=== PATIENT | female | born 1985 | race Caucasian/White ===

== ENCOUNTER → 2016-07-12 | Outpatient (CLI) | payer MEDICAID, OTHER | LOC: MW.CHFP 15:14 | PROVIDERS: ATTEND Emergency Medicine | DX: N91.2 Amenorrhea, unspecified (principal); R68.89 Other general symptoms and signs | CPT/HCPCS: 81025; 87804 ==

== ENCOUNTER 2017-02-17 10:28 | Inpatient (IN) | payer OTHER ==
[2017-02-17] MEDS ORDERED: Lanolin 100% Cream 7 GM Tube TOP PRN (12:15)
[2017-02-17] MEDS ORDERED: Benzocaine/Menthol 20%-0.5% Spray 78 GM Cannister TOP PRN (12:15)
[2017-02-17] MEDS ORDERED: Acetaminophen 500 MG Tab PO PRN ×2 (12:15)
[2017-02-17] MEDS ORDERED: Witch Hazel Medicated Pads 40/Jar TOP PRN (12:15)
[2017-02-17] MEDS ORDERED: oxyCODONE 5 MG Tab PO PRN (12:15)
[2017-02-17] MEDS ORDERED: Ibuprofen 400 MG Tab PO PRN (12:15)
[2017-02-17] MEDS ORDERED: Ibuprofen 800 MG Tab PO PRN (12:15)
[2017-02-17] MEDS ORDERED: Ibuprofen 800 MG Tab ONE (18:33)
[2017-02-17] MEDS ORDERED: Benzocaine/Menthol 20%-0.5% Spray 78 GM Cannister ONE (18:38)
[2017-02-17] MEDS ORDERED: Witch Hazel Medicated Pads 40/Jar TOP ONE (18:38)
[2017-02-17] MEDS ORDERED: Bisacodyl 10 MG Supp RECTAL PRN (20:07)
[2017-02-17] MEDS ORDERED: Docusate Sodium 100 MG Cap PO PRN (20:07)
--- NOTE | 2017-02-18 09:32 | PCM.PNPP ---
- General Info Date of Service: 02/18/17 Functional Status: Reports: Pain Controlled, Tolerating Diet, Ambulating, Urinating - Review of Systems General: Reports: No Symptoms HEENT: Reports: No Symptoms Pulmonary: Reports: No Symptoms Cardiovascular: Reports: No Symptoms Gastrointestinal: Reports: No Symptoms Genitourinary: Reports: No Symptoms Musculoskeletal: Reports: No Symptoms Skin: Reports: No Symptoms Neurological: Reports: No Symptoms Psychiatric: Reports: No Symptoms - Patient Data Vital Signs - Most Recent: Last Vital Signs Temp 36.6 C 02/18/17 03:06 Pulse 75 02/18/17 03:06 Resp 16 02/18/17 03:06 BP 94/55 L 02/18/17 03:06 Pulse Ox 93 L 02/18/17 03:06 Weight - Most Recent: 68.039 kg Lab Results - Last 24 Hours: Laboratory Results - last 24 hr 02/17/17 02/18/17 Range/Units 14:05 06:07 Hgb 12.1 (12.0-16.0) g/dL Hct 35.4 L (36.0-46.0) % Blood Type A NEGATIVE Antibody Screen NEGATIVE Rhogam Indicated NO, MOM+BABY RH NEG Med Orders - Current: Current Medications Acetaminophen (Tylenol Extra Strength) 500 mg PO Q4H PRN PRN Reason: Pain Acetaminophen (Tylenol Extra Strength) 1,000 mg PO Q4H PRN PRN Reason: Pain Benzocaine/Menthol (Dermoplast Pain Relief 20%-0.5% [place]) 78 gm TOP ASDIRECTED PRN PRN Reason: Perineal Comfort Measure Bisacodyl (Dulcolax) 10 mg RECTAL .ONCE PRN PRN Reason: Constipation Docusate Sodium (Colace) 100 mg PO BID PRN PRN Reason: Constipation Emollient Ointment (Lansinoh Hpa) 0 gm TOP ASDIRECTED PRN PRN Reason: Sore Nipples Ibuprofen (Motrin) 400 mg PO Q4H PRN PRN Reason: Pain Ibuprofen (Motrin) 800 mg PO Q6H PRN PRN Reason: Pain Last Admin: 02/17/17 22:32 Dose: 800 mg Oxycodone HCl (Oxycodone) 5 mg PO Q2H PRN PRN Reason: Pain Witch Xi (Tucks) 1 pad TOP ASDIRECTED PRN PRN Reason: comfort care - Interaction Infant Disposition, : in Room with Family Infant Feeding: Breastfed ; Nursed Well Support Person: Significant Other, Director Of Valuation - Recovery Exam Fundal Tone: Firm Fundal Level: 1 Fingerbreadths Below Umbilicus Fundal Placement: Midline Lochia Amount: Scant Lochia Color: Rubra/Red Perineum Description: Intact, Minimal Bruising/Swelling Episiotomy/Laceration: None Bladder Status: Voiding Urinary Elimination: Voided - Exam General: Alert, Oriented HEENT: Pupils Equal Neck: Supple Lungs: Normal Respiratory Effort GI/Abdominal Exam: Soft, Non-Tender, No Organomegaly, No Distention, No Abnormal Bruit, No Mass, Pelvis Stable Extremities: Normal Range of Motion, Non-Tender, No Pedal Edema Skin: Warm, Dry, Intact Neurological: No New Focal Deficit Psy/Mental Status: Alert, Normal Affect, Normal Mood - Problem List & Annotations (1) Precipitous delivery SNOMED Code(s): 922560320 Code(s): O62.3 - PRECIPITATE LABOR Status: Acute Current Visit: Yes - Problem List Review Problem List Initiated/Reviewed/Updated: Yes - My Orders Last 24 Hours: My Active Orders 02/17/17 12:15 Patient Status [ADT] Routine Vital Signs [RC] PER UNIT ROUTINE Acetaminophen [Tylenol Extra Strength] 1,000 mg PO Q4H PRN Acetaminophen [Tylenol Extra Strength] 500 mg PO Q4H PRN Benzocaine/Menthol [Dermoplast Pain Relief 20%-0.5% [place]] 78 gm TOP ASDIRECTED PRN Ibuprofen [Motrin] 400 mg PO Q4H PRN Ibuprofen [Motrin] 800 mg PO Q6H PRN Lanolin [Lansinoh HPA] See Dose Instructions TOP ASDIRECTED PRN Witch Xi [Tucks] 1 pad TOP ASDIRECTED PRN oxyCODONE 5 mg PO Q2H PRN Peripheral IV Discontinue [OM.PC] Routine 02/17/17 20:07 Bisacodyl [Dulcolax] 10 mg RECTAL .ONCE PRN Docusate Sodium [Colace] 100 mg PO BID PRN Resuscitation Status Routine 02/17/17 20:08 May Shower [RC] ASDIRECTED Up ad Vianca [RC] ASDIRECTED Assess Lochia [WOMSER] Per Unit Routine Assess Uterine Involution [WOMSER] Per Unit Routine - Assessment Assessment:: PPD#1 after in [place] with precipitous labor, now stable, minimal lochia, well pain well controlled. Older child sick with upper respiratory symptoms. - Plan Plan:: Dismiss to home today, baby rh negative no need for rhogam. Discharge instructions reviewed. Follow up with Earlene Reynolds at [facility].
--- NOTE | 2017-02-18 09:38 | PCM.DCSUM1 ---
Discharge Summary - Hospital Course Free Text/Narrative:: 31 year old with precipitous labor, delivered in [place], then transported here for care, no perineal laceration, normal course, baby is Rh negative. - Discharge Data Discharge Date: 02/18/17 Discharge Disposition: Home, Self-Care 01 Condition: Good - Discharge Diagnosis/Problem(s) (1) Precipitous delivery SNOMED Code(s): 415087608 ICD Code: O62.3 - PRECIPITATE LABOR Status: Acute Current Visit: Yes - Patient Instructions Diet: Regular Diet as Tolerated Activity: No Strenuous Activities Driving: May Drive Today Showering/Bathing: May Shower Notify Provider of: Fever, Increased Pain, Swelling and Redness, Nausea and/or Vomiting Other/Special Instructions: nothing per vagina for 6 weeks. Continue vitamins while . - Discharge Plan Referrals: Lilia Chavez CNM [Mid-] - (6 weeks) - Discharge Summary/Plan Comment DC Time >30 min.: No - Patient Data Vitals - Most Recent: Last Vital Signs Temp 36.6 C 02/18/17 03:06 Pulse 75 02/18/17 03:06 Resp 16 02/18/17 03:06 BP 94/55 L 02/18/17 03:06 Pulse Ox 93 L 02/18/17 03:06 Weight - Most Recent: 68.039 kg Lab Results - Last 24 hrs: Laboratory Results - last 24 hr 02/17/17 02/18/17 Range/Units 14:05 06:07 Hgb 12.1 (12.0-16.0) g/dL Hct 35.4 L (36.0-46.0) % Blood Type A NEGATIVE Antibody Screen NEGATIVE Rhogam Indicated NO, MOM+BABY RH NEG Med Orders - Current: Current Medications Acetaminophen (Tylenol Extra Strength) 500 mg PO Q4H PRN PRN Reason: Pain Acetaminophen (Tylenol Extra Strength) 1,000 mg PO Q4H PRN PRN Reason: Pain Benzocaine/Menthol (Dermoplast Pain Relief 20%-0.5% [place]) 78 gm TOP ASDIRECTED PRN PRN Reason: Perineal Comfort Measure Bisacodyl (Dulcolax) 10 mg RECTAL .ONCE PRN PRN Reason: Constipation Docusate Sodium (Colace) 100 mg PO BID PRN PRN Reason: Constipation Emollient Ointment (Lansinoh Hpa) 0 gm TOP ASDIRECTED PRN PRN Reason: Sore Nipples Ibuprofen (Motrin) 400 mg PO Q4H PRN PRN Reason: Pain Ibuprofen (Motrin) 800 mg PO Q6H PRN PRN Reason: Pain Last Admin: 02/17/17 22:32 Dose: 800 mg Oxycodone HCl (Oxycodone) 5 mg PO Q2H PRN PRN Reason: Pain Witch Xi (Tucks) 1 pad TOP ASDIRECTED PRN PRN Reason: comfort care *Q Meaningful Use (DIS) - VTE *Q VTE Criteria *Q: - Stroke *Q Stroke Criteria *Q: - AMI *Q AMI Criteria *Q:
[2017-02-18 12:36] VITALS: BP 124/69
== END 2017-02-18 14:20 | disposition home or self-care (01) | DRG 776 ==
LOC: MW.OB 10:28
PROVIDERS: ADMIT Obstetrics & Gynecology; ATTEND Obstetrics & Gynecology
DX: Z39.0 Encounter for care and examination of mother immediately after delivery (principal)
CPT/HCPCS: 36415; 85014; 85018; 86850; 86900; 86901; A9270-GY